=== PATIENT | male | born 1995 | race African-American/Black ===

== ENCOUNTER 2021-08-22 08:05 | Emergency (ER) | payer MEDICAID ==
[~2021-08-22] VITALS: Ht 167.6 cm; Wt 63.0 kg
[2021-08-22] MEDS ORDERED: LIDOCAINE HCL/EPINEPHRINE 1%-EPI 1:100,000 20 ML VIAL INFIL ONE (08:30)
[2021-08-22] MEDS ORDERED: SULF1TAB48 MT (09:33)
[2021-08-22 09:45] VITALS: BP 126/85
== END 2021-08-22 09:47 | disposition home or self-care (01) ==
LOC: ER 08:28
DX: L02.411 Cutaneous abscess of right axilla (principal)
CPT/HCPCS: 10060; 99282; J3490

== ENCOUNTER 2021-08-24 09:40 | Emergency (ER) | payer MEDICAID ==
[~2021-08-24] VITALS: Ht 167.6 cm; Wt 63.0 kg
[~2021-08-24 09:40] MED LIST: SULF1TAB48 MT
[2021-08-24 09:48] VITALS: BP 121/55
== END 2021-08-24 10:44 | disposition home or self-care (01) ==
LOC: ER 09:58
DX: Z48.02 Encounter for removal of sutures (principal)
CPT/HCPCS: 99281

== ENCOUNTER 2023-04-07 22:48 | Emergency (ER) | payer MEDICAID, OTHER ==
[~2023-04-07] VITALS: Ht 167.6 cm; Wt 60.0 kg
[2023-04-07 23:00] VITALS: O2SAT 100
[2023-04-07] MEDS: ACETAMINOPHEN 325MG TABLET PO ONE (23:51)
[2023-04-08] VITALS: TEMP 98.7
[2023-04-08 00:04] LABS: BASOPHILS % 0.3 % (0.0-2.0); EOSINOPHILS % 0.3 % (0.0-5.0); HEMATOCRIT. 42.4 % (42.0-52.0); HEMOGLOBIN. 13.8 g/dL (14.0-18.0); MEAN CORPUSCULAR HEMOGLOBIN 28.3 pg (28.0-32.0); MEAN CORPUSCULAR HGB CONC 32.5 g/dL (31.0-37.0); MEAN PLATELET VOLUME 10.1 fl (7.4-10.4); MONOCYTES % 3.8 % (2.0-8.0); NEUTROPHILS % 80.6 % (40.0-76.0); PLATELET 171 x1000/uL (130-400); RED BLOOD CELL COUNT 4.87 mill/uL (4.7-6.1); RED CELL DISTRIBUTION WIDTH 13.8 % (11.6-14.6); WHITE BLOOD COUNT 12.5 x1000/uL (4.5-11.0)
[2023-04-08 00:11] LABS: ALANINE AMINOTRANSFERASE 21 IU/L (10-49); ALBUMIN 4.5 g/dL (3.2-4.8); ASPARTATE AMINOTRANSFERASE 57 IU/L (<34); CALCIUM 8.9 mg/dL (8.7-10.4); CARBON DIOXIDE 25 mEq/L (21-32); CHLORIDE 104 mEq/L (98-107); CREATININE 1.3 mg/dL (0.6-1.3); GLUCOSE 173 mg/dL (70-105); POTASSIUM 3.6 mEq/L (3.5-5.1); PROTEIN TOTAL 7.4 g/dL (6.0-8.3); SODIUM 138 mEq/L (136-145); UREA NITROGEN BLOOD 13 mg/dL (9-23)
[2023-04-08 02:03] LABS: CLARITY URINE CLOUDY (CLEAR); COLOR URINE YELLOW (YELLOW); GLUCOSE URINE NEGATIVE (NEGATIVE); KETONES URINE 1+ (NEGATIVE); LEUKOCYTE ESTERASE URINE NEGATIVE (NEGATIVE); NITRITE URINE NEGATIVE (NEGATIVE); OCCULT BLOOD URINE NEGATIVE (NEGATIVE); PH URINE 6.5 (4.5-8.0); PROTEIN URINE NEGATIVE (NEGATIVE); SPECIFIC GRAVITY URINE 1.027 (1.005-1.030)
[2023-04-08 04:26] LABS: RBC URINE 0-2 /hpf (0-2); WBC URINE 0-2 /hpf (0-2)
[2023-04-08 04:27] LABS: SQUAMOUS EPITHELIAL CELL URINE NONE SEEN /lpf (RARE/1+)
[2023-04-08 04:28] LABS: BACTERIA URINE NONE SEEN
[2023-04-08 06:00] VITALS: BP 116/80; PULSE 70; RESP 17
== END 2023-04-08 07:15 | disposition home or self-care (01) ==
LOC: ER 23:01
DX: R10.9 Unspecified abdominal pain (principal); F12.90 Cannabis use, unspecified, uncomplicated
CPT/HCPCS: 36415; 74176; 80053; 81003; 85025; 99285

== ENCOUNTER 2024-10-27 11:04 | Emergency (ER) | payer OTHER ==
[~2024-10-27] VITALS: Ht 167.6 cm; Wt 64.0 kg
[2024-10-27 11:19] VITALS: O2SAT 99
[2024-10-27 13:26] VITALS: BP 115/80; PULSE 70; RESP 15; TEMP 37; O2SAT 99
== END 2024-10-27 13:29 | disposition home or self-care (01) ==
LOC: ER 11:04
DX: L91.0 Hypertrophic scar (principal)
CPT/HCPCS: 99282